=== PATIENT | female | born 1965 | race Caucasian/White ===

== ENCOUNTER → 2018-12-10 09:14 | Outpatient (CLI) | payer OTHER, SELFPAY ==
--- NOTE | 2018-12-10 09:22 | BI_ITS ---
MAMMOGRAPHY - BILATERAL SCREENING REASON FOR EXAM: Female, 53 years old. Right axillary fullness. PERTINENT HISTORY: Mother with breast cancer. TECHNIQUE: Digital bilateral breast analy (3D mammographic acquisition) in the CC and MLO projections. 2-D mediolateral oblique (MLO) and craniocaudad (CC) views of both breasts were obtained. CAD: Full Field Digital Mammography with Computer Added Detection was performed. COMPARISON: Comparison is made with prior outside examination dated November 22, 2017. FINDINGS: Breast Composition: The breasts are extremely dense, which lowers the sensitivity of mammography. Enlargement of the bilateral axillary lymph nodes more prominent on the right side. No mass lesion or clustering calcification is seen within the breast. No other significant abnormalities are identified. BI/SCREENING MAMM (CAD), BILAT IMPRESSION: Enlarged bilateral axillary lymph nodes more prominent on the right side. Ultrasound correlation is recommended. ASSESSMENT CATEGORY: BIRADS Category 0: Incomplete. Need additional imaging evaluation. A letter regarding these results will be sent to the patient by the facility within 30 days. Approximately 10% of breast cancers are not detected by mammography. A normal mammogram should not delay biopsy of a clinically suspicious abnormality. [id number] Electronically Signed: Brent Guerra, at 12:42 EDT , Service support ,
--- NOTE | 2018-12-10 10:11 | US_ITS ---
STUDY: ULTRASOUND BREAST - RIGHT REASON FOR EXAM: Female, 53 years old. Right axillary swelling. TECHNIQUE: Axial and longitudinal images of the RIGHT breast were performed with a high resolution ultrasound transducer. COMPARISON: Comparison is made with prior mammogram done earlier today. FINDINGS: RIGHT Breast: Several enlarged lymph nodes are seen in the right axilla. The largest measures 3.8 cm x 1.4 cm x 1.9 cm. This as an abnormal appearance. A biopsy is recommended. US/Breast Limited Unilateral IMPRESSION: Enlarged right axillary lymph nodes. The largest measures 3.8 cm x 1.4 cm x 1.9 cm. Biopsy is recommended. ASSESSMENT CATEGORY: BIRADS Category 4: Suspicious - Biopsy Should Be Considered. A letter regarding these results will be sent to the patient by the facility within 30 days. Electronically Signed: Brent Guerra, at 12:40 EDT , Service support ,
--- NOTE | 2018-12-24 10:55 | NURSING ---
PT'S PCP CALLED BY MOISE DURON IN [place] TO DETERMINE IF PT HAD FOLLOW UP BIOPSY SCHEDULED IN [place]. PT'S PCP OFFICE STATED PT WAS HAVING INSURANCE PROBLEMS BETWEEN STATES AND PT WAS GOING TO FIND APPROPRIATE SURGEON TO DO BIOPSY THAT WAS COVERED BY INSURANCE. MOISE DURON THEN CALLED PT AND PT STATED I ACTUALLY HAD A BIOPSY DONE IN [place] YESTERDAY AND THEY'RE GOING TO BE SENDING ALL MY RESULTS TO MY DOCTOR IN [place]. PT THANKED MOISE DURON FOR FOLLOW UP.
== END ==
DX: Z12.31 Encounter for screening mammogram for malignant neoplasm of breast (principal); M79.89 Other specified soft tissue disorders
CPT/HCPCS: 76642; 77063; 77067

== ENCOUNTER → 2020-03-23 14:57 | Outpatient (CLI) | payer OTHER, SELFPAY ==
--- NOTE | 2020-03-23 | CER_PTH ---
PATIENT: JEFFERSON CRUM LOC: [facility] #:[id number] AGE/SX: 59/F ROOM: RE03/23/[address]: Dr. Anette Kilne MD : [id number] BED: DIS: SPEC #: [id number] RECD: 03/23/20 16:39 STATUS: HARRIETT CHAVA #: [id number] TOMI: 03/23/20 00:[address]: Anette Kline DEPT: SURGICAL PATHOLOGY RECD BY: Trevon Hernandez Tissues: POLYP Procedures: Surgery Specimen Level IV HEADER OPERATION: Cervical polyp PRE-OP DIAGNOSIS: Cervical polyp TISSUE SUBMITTED: Cervical polyp MICROSCOPIC DIAGNOSIS Cervical polyp, biopsy: Benign endocervical polyp, inflamed. AM:fuad 03/25/20 MICROSCOPIC DESCRIPTION Slides are reviewed. GROSS DESCRIPTION Received in fixative is one container labeled with the patient's name and designated cervical polyp. The specimen consists of a piece of kent-pink polyp measuring 1 x 1 x 0.5 cm. The specimen is serially sectioned and submitted entirely in one cassette. / SJ:rg 03/24/20 TC:3 CPT: 25353
[2020-03-23 14:06] VITALS: BMI 21.9
[2020-03-23 15:25] LABS: Lipase 382 U/L (73-393)
== END ==
PROVIDERS: Referring Provider Obstetrics & Gynecology; Visit Provider Obstetrics & Gynecology
DX: N84.1 Polyp of cervix uteri (principal)
CPT/HCPCS: 36415; 83690; 88305

== ENCOUNTER → 2020-04-04 11:21 | Outpatient (CLI) | payer OTHER, SELFPAY ==
[2020-03-23 14:06] VITALS: BMI 21.9
--- NOTE | 2020-04-04 11:24 | US_ITS ---
STUDY: ULTRASOUND OF THE FEMALE PELVIS - COMPLETE REASON FOR EXAM: Female, 54 years old. PELVIC PAIN LMP: 11/25/2019. TECHNIQUE: Transabdominal TECHNICAL QUALITY: Adequate. COMPARISON: None. FINDINGS: The uterus is anteverted and is in a midline position. The uterus measures 6.8 cm x 4 cm x 2.8 cm. Normal uterine cervix. The endometrium measures 2.3 mm in thickness, and is hyperechoic. There is no demonstrated endometrial mass. Small amount of fluid is seen within the cervical canal. The patient is status post recent polyp removal. There is no demonstrated myometrial mass. I.U.D. - The patient does not have an I.U.D. The right ovary is visualized. The right ovary measures 1.7 cm x 1.5 cm x 0.9 cm. There is no right ovarian cyst or ovarian mass. There is no visualized right adnexal mass or complex lesion. There is normal arterial and normal venous vascularity. The left ovary is visualized. The left ovary measures 2.5 cm x 1.7 cm x 1.6 cm. There is a 2.1 cm x 1.4 cm x 1.3 cm left ovarian cyst. There is no visualized left adnexal mass or complex lesion. There is normal arterial and normal venous vascularity. There is no fluid in the cul-de-sac. The pre void volume of the bladder was 453 ml. Polycystic ovary disease: No. US/Pelvic (Non ) IMPRESSION: Small amount of fluid is seen within the endocervical canal. Small cyst in the left ovary. Electronically Signed: Brent Guerra, at 15:22 EDT , Service support ,
== END ==
PROVIDERS: Referring Provider Obstetrics & Gynecology; Visit Provider Obstetrics & Gynecology
DX: N84.1 Polyp of cervix uteri (principal)
CPT/HCPCS: 76856; 93976

== ENCOUNTER → 2020-09-02 09:36 | Outpatient (CLI) | payer OTHER, SELFPAY ==
[2020-09-02 08:04] VITALS: BMI 24.2
[2020-09-02 09:43] LABS: Bacteria 0 SEEN /hpf (None Seen); Mucous, Urine 0 SEEN /hpf (<or=2+); Red Blood Cells-Urine 0 SEEN /hpf (0-5)
[2020-09-02 09:49] LABS: Color, Urine Yellow (Yellow); Glucose, Dipstick Normal (Normal); Ketone-Dipstick Negative (Negative); Leukocyte Esterase-Dipstick 500 /ul (Negative); Nitrite-Dipstick Negative (Negative); Occult Blood-Urine 150 /ul (Negative); Protein-Dipstick Negative (Negative); Urine Bilirubin Dipstick Negative (Negative); Urine Clarity Clear (Clear); Urine Urobilinogen Normal (Normal)
[2020-09-02 18:08] LABS: Renal Epithelial Cells 0-5 SEEN /hpf (0-5); Squamous Epithelial Cells - UA 0-5 SEEN /hpf (5-10); White Blood Cells 5-10 SEEN /hpf (0-5)
== END ==
PROVIDERS: Referring Provider Physician Assistant Surgical; Visit Provider Physician Assistant Surgical
DX: N39.0 Urinary tract infection, site not specified (principal)
CPT/HCPCS: 81001; 87086; 87088